=== PATIENT | male | born 1990 | race Caucasian/White ===

== ENCOUNTER 2023-09-11 21:29 | Emergency (ER) | payer BC, SELFPAY ==
[2023-09-11 21:32] VITALS: BP 115/82
--- NOTE | 2023-09-11 21:58 | ED.MUSCINJ ---
HPI-Injury
General
Chief Complaint: Musculo-Skeletal Complaint
Source: patient
Exam Limitations: none
Time Seen by Provider: 09/11/23 21:53
Travel History
Have you had any contact with someone who has COVID-19?: No
Do you have any symptoms of coronavirus? Fever > 100 degrees, chills, cough, shortness of breath, sore throat, loss of taste or smell, muscle aches, or headache?: No
History of Present Illness-Injury
Is this injury a work related problem?: No
Is pt an associate of [facility]?: No
Initial Injury comments:
This is a 33 year old male that comes in with c/o left knee pain. States that he was playing Soccer and he planted his left foot in the turf and his body just kept going. States that he had pain right away. States that he is concerned about his ACL.
Denies any falls. Denies any fever, chills, nausea, vomiting, diarrhea, headache, dizziness.
Past History
Past History
ED Past Medical History: None
ED Past Surgical History: None
Social History
Tobacco: Non-smoker
Alcohol: Occasional
Personal: Single
Living: with family
Review of Systems
Review of Systems
All Other Systems: ROS reviewed and negative except as documented in HPI and ROS
Constitutional: Reports no symptoms; Denies fever or chills
EENT: Reports no symptoms
Respiratory: Reports no symptoms
Cardiac: Reports no symptoms
ABD/GI: Reports no symptoms; Denies abdominal pain, nausea, vomiting or diarrhea
: Reports no symptoms
Musculoskeletal: Reports joint pain (left knee pain)
Skin: Reports no symptoms
Neurological: Reports no symptoms; Denies dizzy or headache
Psychiatric: Reports no symptoms
Musculoskeletal Injury Exam
Musculoskeletal Injury Exam
Left Knee:
Pain with Movement?: Mild
Tender to palpation?: None
Soft tissue swelling?: Mild
External deformity and angulation?: None
Joint effusion?: None
Contusion?: None
Hematoma-local bleeding into tissue?: None
Strain- Sprain- Tear (Connective tissue injury)?: None
Crepitus with movement?: No
Joint instability?: No
Malalignment/deformity?: No
Range of motion: Limited (Due to pain)
Distal skin color and temperature: normal-warm & good color
Capillary Refill: normal
Normal distal neurovascular exam?: Yes
Phy Exam
General Physical Exam
General Presentation: well appearing and no apparent distress
General age: appears stated age
General Skin: warm and dry
General Habitus: normal
General Mental: alert
General Hydration: appears well hydrated
Eye Exam
Eye Exam: EOMI
Musculoskeletal Exam
Musculoskeletal Exam: other (Patient able to flex and straighten knee. Negative for discomfort with palpation medial or laterally. Very slight proximal swelling noted)
Skin Exam
Skin Exam: normal color, warm/dry and no petechia
Psychiatric Exam
Psychiatric Exam: normal mood/affect
Injury Course
Orders/Labs/Results
Orders:
Orders
09/11/23 21:34
Knee, Left 4 or More Views [CR Knee - Left 4 Or More View*] Urgent
Comment:
Reason For Exam: pain
09/11/23 21:58
Crutches-Treatment ONCE
Knee Immobilizer Left-Treatmen ONCE
Acetaminophen [Tylenol] 1,000 mg PO NOW STA
Ibuprofen [Motrin] 600 mg PO NOW STA
MDM/Problems Addressed
Differential Diagnosis Includes:
Knee sprain, Knee dislocation. Tendon/ligament injury.
MDM/Problems Addressed:
This is a 33 year old male that comes in with c/o left knee pain after playing soccer. States that he planted his left foot and his body kept going. States that he had pain in the knee right away.
Explained that no fractures are note don X-ray. Will place patient in a Knee immobilizer and given him Crutches. Patient can weight bare as tolerated. Follow up with the specialist physician for further evaluation. Tylenol and Ibuprofen for pain.
Ice for the next 24 hours. Return with any concerns.
Chronic conditions affecting care:
NA
Acute Exacerbation and/or Progression of Chronic Illness:
NA
*Radiology
Radiology exam reviewed: preliminary read by ED provider (left knee- Negative for fracture or dislocation. )
*Pulse Oximetry
Patient hypoxic: no
*EKG
Interpreted by ED Provider?: NA
Rate: EKG- N/A
*Rn Heart Interpretation
Rate: Rn Heart- N/A
*Critical Care Note
Total Time (30-74mins, 75-104mins- exclusive of procedures): Not Applicable
ED Attending Note
-
Portions of this chart may have been created with voice recognition software.� Occasional wrong word or��sound alike� substitutions may have occurred due to the inherent limitations of voice recognition software.
Discharge Plan
Departure
Patient Disposition: Home (Routine Discharge)
Date of Disposition: 09/11/23
Time of Disposition: 22:05
Patient with high blood pressure during this ER visit?: No
Condition: Good
Covid-19: Not Applicable
Discharge Problem:
Left knee sprain
Instructions: How to Use Crutches, Knee Immobilizer (DC), Knee Sprain (DC), RICE Therapy
Referrals:
Sheldon Cartagena MD [Active] - Follow up in 2-3 days
Activity Restrictions/Additional Instructions:
As discussed, your X-ray is negative for any fracture or dislocation. This may just be a sprain. Please use the immobilizer until you are seen by the specialist physician. You may weight bare as tolerated. You may use Ibuprofen 600mg every 6 hour
with food for pain and Tylenol 1000mg every 6 hour as needed for pain. Rest, ice and elevate. IF YOU HAVE ANY OTHER CONCERNS PLEASE RETURN TO THE EMERGENCY ROOM.
Interventions
Interventions:
*Risk Screen - Suicide Last Done: 09/11/23 21:32
*General Assessment Last Done: 09/11/23 21:32
*Neglect/Abuse Screening Last Done: 09/11/23 21:32
*ED COVID-19 Vaccine History Last Done: 09/11/23 21:32
Discharge Date and Time
Print Language: SYRIAC
[2023-09-11] MEDS: TYLENOL 1000 MG PO (22:12)
[2023-09-11] MEDS: MOTRIN 600 MG PO (22:13)
== END 2023-09-11 22:44 | disposition home or self-care (01) ==
LOC: EMR 21:29
PROVIDERS: EMERGENCY PHYSICIAN Emergency Medicine; FAMILY PHYSICIAN Internal Medicine
DX: S83.92XA Sprain of unspecified site of left knee, initial encounter (principal); Y92.322 Soccer field as the place of occurrence of the external cause; Y93.66 Activity, soccer
CPT/HCPCS: 99283; 29505; 73564